=== PATIENT | female | born 1990 | race Two or more races ===

== ENCOUNTER → 2025-05-14 | Outpatient (CLI) | payer MEDICAID, SELFPAY ==
--- NOTE | 2025-05-14 10:30 | XR_ITS ---
MRI shoulder, left, without contrast. Date and time: May 14, 2025, 1112 hours INDICATIONS: Left shoulder pain numbness in the left arm joint clicking and stiffness beginning 2 years ago Technique: Multiple axial, sagittal and coronal sections of the shoulder have been obtained. Siemens high-resolution 1.5 Bianca MRI scanner is utilized. Axial fat-suppressed sections, TR 2350, TE 18 T2-weighted coronal fat-saturated images, TR 3500, TE 7100 T1-weighted coronal images, TR 500, TE 15 T2-weighted sagittal fat-saturated images, TR 3500, TE 57 T1-weighted sagittal sections, TR 504, TE 13. Findings: Supraspinatus tendon insertion is intact. Infraspinatus tendon insertion is intact. Subscapularis insertion is intact. Subscapularis bursa is not seen. Long head of the biceps is in the bicipital groove. No definite tear of the biceps superior labral anchor is seen. Retraction of the musculotendinous junction of the rotator cuff is not seen . Tendinosis pattern is moderate. Distance between the acromium and humeral head is 6.3 mm Atrophy of the supraspinatus muscle is mild . Atrophy of the infraspinatus muscle is not seen. Sagittal sections demonstrate a horizontal acromion. Acromioclavicular joint demonstrates mild osteoarthritis . Osacromiale is not identified. Labrum margins intact. Bony glenoid fossa on the sagittal sections does not demonstrate osseous defect. Occult fracture or area of avascular necrosis is not seen. Acromioclavicular joint separation is not visible. Defect in the posterolateral margin of the humeral head is not seen Impression: Rotator cuff intact. Labral margins intact
== END | disposition home or self-care (01) ==
LOC: SMRI 10:03
PROVIDERS: PCP Physician Assistant; Referring Provider Physician Assistant; Visit Provider Physician Assistant
DX: M25.512 Pain in left shoulder (principal)
CPT/HCPCS: 73221

== ENCOUNTER 2025-08-09 16:00 | Outpatient (RCR) | payer MEDICAID, SELFPAY ==
--- NOTE | 2025-08-03 15:03 | PTNOTE_ITS ---
PT OP Initial Eval Patient Information Outpatient Physical Therapy Treatment Date: 08/03/25 Visit Reasons: pain in left shoulder Medical Diagnosis: M25.512 Treatment Dx #1: L shoulder pain Start of Care: 08/03/25 Date of Onset: 2 yrs ago Smoking Status Smoking Status: Never smoker Initial Assessment Subjective: Pt is 35 yr old thai speaking female who c/o L shoulder pain x2 yrs. Increased pain with reaching OH, it pops, lifting things. 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 PMH: none reported Imaging: MRI of L shoulder: negative Pt goal: to get rid of the pain Objective: L shoulder AROM: ? FF: 95 deg ? Abd: 90 deg ? ER: 65 deg ? HBB: to L glute with pain ? Strength: 3+/5 in all planes ? PROM: end-range pain with capsular tightness Assessment: Pt presentation consistent with adhesive capsulitis of?L ? shoulder. ROM limited in capsular pattern with pain that limits end-range ? tolerance into all planes but especially ER and IR.?There may be an underlying issue or cause for the pain that has lasted for 2 yrs such as labral irritation based on physical exam today. Pt may benefit from skilled therapy and has fair rehab potential to meet goals. Short Term and Group Home Goals 1. Ind with HEP ? 2. Improved AROM of L shoulder to at least 135 deg FF, 125 deg abduction and 90 deg ? ER ? 3. Improved HBB ROM to L3 ? 4. Pt will reach OH x10 with <=4/10 pain Treatment Plan 1. Manual therapy ? 2. Therex ? 3. Modalities as indicated, moist heat pack, ice, electrical stimulation Frequency and Duration: 2x a week for 12 visits plus the evaluation Certification Dates: 08/03/25 to 11/01/25 Procedure Charges OP PT Eval Mod Complex 30 minutes: Yes
--- NOTE | 2025-08-09 16:59 | PT.ODAYNRPT ---
PT Outpatient Daily Note OP Daily Note Outpatient Physical Therapy Treatment Date: 08/09/25 Visit Reasons: pain in left shoulder Subjective: Pt c/o pain to Lt shoulder and explains pain increases with reaching OH. Objective: See F/S for therex performed Assessment: Fair tolerance to therex due to Lt shoulder pain. Min vc's required to perform therex within tolerable ROM and avoid upper trap compensation for OH exercises, pt complied. Ice pack applied post session. Plan: Continue with POC Length of Time (minutes) of Treatment: 30 Minutes Procedure Charges Therapeutic Exercise 30 minutes: Yes
== END 2025-08-09 23:59 | disposition home or self-care (01) ==
LOC: CPTX 16:00
PROVIDERS: PCP Physician Assistant; Referring Provider Physician Assistant; Visit Provider Physician Assistant
DX: M25.512 Pain in left shoulder (principal)
CPT/HCPCS: 97110; 97162

== ENCOUNTER 2025-08-25 16:00 | Outpatient (RCR) | payer MEDICAID, SELFPAY ==
--- NOTE | 2025-08-11 17:23 | PT.ODAYNRPT ---
PT Outpatient Daily Note OP Daily Note Outpatient Physical Therapy Treatment Date: 08/11/25 Visit Reasons: PAIN IN LEFT SHOULDER Subjective: Pt c/o pain to Lt shoulder and reports felling a little better since starting PT. Objective: See F/S for therex performed Assessment: Fair tolerance with therex due to Lt shoulder pain. Improved independence with exercises and remaining within tolerable ROM and force with isometric strengthening. Ice pack applied post session. Plan: Continue with POC Length of Time (minutes) of Treatment: 30 Minutes Procedure Charges Therapeutic Exercise 30 minutes: Yes
--- NOTE | 2025-08-23 17:15 | PT.ODAYNRPT ---
PT Outpatient Daily Note OP Daily Note Outpatient Physical Therapy Treatment Date: 08/23/25 Visit Reasons: PAIN IN LEFT SHOULDER Subjective: Continued L shoulder pain interrupts sleep and reaching OH Objective: See F/S for therex performed Assessment: Slow progress with therapy goals due to continued L shoulder pain Plan: Continue with POC Length of Time (minutes) of Treatment: 30 Minutes Procedure Charges Therapeutic Exercise 30 minutes: Yes
--- NOTE | 2025-08-25 17:42 | PT.ODS1RPT ---
PT OP Progress/Discharge Note Date of Service: 08/25/25 Progress Note/DC Note Progress Note/Discharge Note: DC Note Patient Information Visit Reasons: PAIN IN LEFT SHOULDER Service Continue Service or Discharge: Discharge Status Subjective: Continued L shoulder pain interrupts sleep and reaching OH, about the same as before therapy Objective: See F/S for therex L shoulder AROM: FF: 90 deg slowly Abd: 90 deg with pain ER: 70 deg Strength: 3-/5 in all planes Assessment: Pt attended the evaluation and 4 Rx sessions with slow and limited progress with therapy goals due to continued L shoulder pain. she hasn't met goals due to this and wants to continue at home since therapy isn't helping the pain. Ssx are consistent with labral irritation and possibly RC tendinopathy. Plan: D/C with HEP Procedure Charges Therapeutic Exercise 30 minutes: Yes
== END 2025-09-09 23:59 | disposition home or self-care (01) ==
LOC: CPTX 16:00
PROVIDERS: PCP Physician Assistant; Referring Provider Physician Assistant; Visit Provider Physician Assistant
DX: M25.512 Pain in left shoulder (principal)
CPT/HCPCS: 97110